=== PATIENT | male | born 1960 | race Caucasian/White ===

== ENCOUNTER 2019-08-09 16:52 | Inpatient (IN) | payer MEDICAID ==
[~2019-08-09] VITALS: Ht 170.2 cm; Wt 69.3 kg
[2019-08-09] MEDS ORDERED: MAG HYDROX/AL HYDROX/SIMETH 30 ML SUSP UDCUP PO ONE (17:15)
[2019-08-09] MEDS ORDERED: SODIUM CHLORIDE 0.9% 1,000 ML IV ONE (17:15)
[2019-08-09] MEDS ORDERED: FAMOTIDINE 10 MG/ML 2 ML VIAL IVP ONE (17:15)
[2019-08-09] MEDS ORDERED: ACETAMINOPHEN 500 MG TABLET PO ONE (17:15)
[2019-08-09] MEDS ORDERED: ONDANSETRON HCL 4 MG/2 ML VIAL IVP ONE (17:15)
[2019-08-09 17:29] LABS: BASOPHILS % (AUTO) 0.7 % (0.0-2.0); EOSINOPHILS % (AUTO) 0.6 % (1.0-6.0); HEMATOCRIT 38.3 % (41-53); HEMOGLOBIN 12.4 g/dL (13.5-17.5); LYMPHOCYTES # (AUTO) 1.2 K/uL (1.0-4.8); LYMPHOCYTES % (AUTO) 15.9 % (22.0-44.0); MEAN CORPUSCULAR HEMOGLOBIN 34.7 pg (26.0-34.0); MEAN CORPUSCULAR HGB CONC 32.2 G/dL (31.0-37.0); MEAN CORPUSCULAR VOLUME 108 fL (80-100); MONOCYTES # (AUTO) 0.8 K/uL (0.1-1.0); MONOCYTES % (AUTO) 11.1 % (2.0-9.0); NEUTROPHILS # (AUTO) 5.3 K/uL (1.8-7.7); NEUTROPHILS % (AUTO) 71.7 % (40.0-70.0); PLATELET COUNT (AUTO) 129 K/uL (150-450); RED BLOOD CELL COUNT(AUTO) 3.56 MIL/uL (4.50-5.90)
[2019-08-09 18:04] LABS: ALANINE AMINOTRANSFERASE 16 U/L (12-78); ALKALINE PHOSPHATASE 83 U/L (46-116); ANION GAP 9 mmol/L (8-16); ASPARTATE AMINOTRANSFERASE 49 U/L (15-37); BILIRUBIN,TOTAL 0.8 mg/dL (0.1-1.0); CALCIUM, TOTAL 7.8 mg/dL (8.8-10.5); CARBON DIOXIDE 34 mmol/L (22-29); CHLORIDE 89 mmol/L (98-107); CREATINE KINASE, TOTAL ONLY 474 U/L (39-308); CREATININE 0.71 mg/dL (0.60-1.30); GLOMERULAR FILTR. RATE CALC > 60 mL/min (>60); GLUCOSE,RANDOM 106 mg/dL (70-110); LIPASE 127 U/L (73-393); SODIUM SERUM 132 mmol/L (136-145); TOTAL PROTEIN, SERUM 6.6 g/dL (6.4-8.2); UREA NITROGEN, BLOOD 14 mg/dL (7-18)
[2019-08-09 18:09] LABS: POTASSIUM 2.5 mmol/L (3.5-5.1)
[2019-08-09 18:10] LABS: INR 0.9 (0.9-1.1); PROTHROMBIN TIME 9.5 SEC (9.4-11.6)
[2019-08-09] MEDS ORDERED: POTASSIUM CHLORIDE 20 MEQ ER TABLET PO ONE (18:15)
[2019-08-09] MEDS ORDERED: SODIUM CHLORIDE 0.9% 100 ML ONE (18:17)
[2019-08-09] MEDS ORDERED: IOVERSOL 350 MG/ML 100 ML VIAL ONE (18:17)
[2019-08-09 18:18] LABS: B-TYPE NATRIURETIC PEPTIDE 37 pg/mL (0-100)
[2019-08-09] MEDS: POTASSIUM CHL 10 MEQ/WATER 50 ML IV SCH ×2 (18:53→20:03)
[2019-08-09] MEDS ORDERED: ERTAPENEM SODIUM 1 GM in SODIUM CHLORIDE 0.9% 50 ML IV ONE (19:30)
[2019-08-09] MEDS ORDERED: PIPERACILLIN SODIUM/TAZOBACTAM 4.5 GM in DEXTROSE 5%-WATER 100 ML IV ONE (19:45)
[2019-08-09] MEDS ORDERED: 0.9% SODIUM CHLORIDE 10 ML SYRINGE IVP PRN (20:00)
[2019-08-09] MEDS ORDERED: ONDANSETRON HCL 4 MG/2 ML VIAL IVP PRN ×2 (20:00→22:15)
[2019-08-09] MEDS ORDERED: ACETAMINOPHEN 325 MG TABLET PO PRN ×2 (20:00→22:15)
[2019-08-09 20:25] LABS: INFLUENZA TYPE A NEGATIVE FOR TYPE A (NEGATIVE); INFLUENZA TYPE B NEGATIVE FOR TYPE B (NEGATIVE)
[2019-08-09 20:42] LABS: AMPHET/METH SCREEN,URINE NEGATIVE (NEGATIVE); BARBITURATE SCREEN, URINE NEGATIVE (NEGATIVE); BENZODIAZEPINES SCREEN,URINE NEGATIVE (NEGATIVE); CANNABINOID SCREEN,URINE NEGATIVE (NEGATIVE); COCAINE SCREEN,URINE NEGATIVE (NEGATIVE); METHADONE SCREEN, URINE NEGATIVE (NEGATIVE); OPIATE SCREEN,URINE NEGATIVE (NEGATIVE)
[2019-08-09 20:44] LABS: APPEARANCE,URINE CLEAR (CLEAR); BILIRUBIN,URINE NEGATIVE (NEGATIVE); GLUCOSE, URINE (UA) NEGATIVE (NEGATIVE); KETONES,URINE NEGATIVE (NEGATIVE); LEUKOCYTE ESTERASE ,URINE NEGATIVE (NEGATIVE); NITRATE,URINE NEGATIVE (NEGATIVE); OCCULT BLOOD,URINE NEGATIVE (NEGATIVE); PROTEIN,URINE POS 1+ (NEGATIVE)
[2019-08-09 20:46] LABS: PHENCYCLIDINE SCREEN,URINE NEGATIVE (NEGATIVE)
[2019-08-09 20:59] LABS: RBC,URINE None Seen /HPF (0-2)
[2019-08-09 21:00] LABS: BACTERIA,URINE None Seen /HPF (None Seen); SQUAMOUS EPITHELIAL CELL,UR Rare /LPF (None Seen); WBC,URINE None Seen /HPF (0-5)
[2019-08-09] MEDS ORDERED: ZOLPIDEM TARTRATE 5 MG TABLET PO PRN (22:15)
[2019-08-09] MEDS ORDERED: POTASSIUM CHLORIDE 20 MEQ ER TABLET PO PRN (22:15)
[2019-08-09] MEDS ORDERED: POTASSIUM CHL 10 MEQ/WATER 50 ML IV PRN (22:15)
[2019-08-09] MEDS ORDERED: BISACODYL 10 MG RECTAL RECTAL SUPPOSITORY PR PRN (22:15)
[2019-08-09] MEDS ORDERED: MAGNESIUM HYDROXIDE SUSPENSION 30 ML UDCUP PO PRN (22:15)
[2019-08-09] MEDS ORDERED: HYDROCODONE/ACETAMINOPHEN 5-325 MG TABLET PO PRN (22:15)
[2019-08-09 22:41] LABS: PHOSPHORUS 3.4 mg/dL (2.5-4.9)
[2019-08-09 22:56] VITALS: BP 109/78
[2019-08-10] MEDS: HEPARIN SODIUM,PORCINE 5,000 UNITS/ML VIAL SQ SCH ×3 (00:21→15:42)
[2019-08-10] MEDS: CIPROFLOXACIN 400 MG/D5% WATER 200 ML IV SCH ×3 (00:22→23:19)
[2019-08-10] MEDS: MetroNIDAZOLE 500 MG/NACL 100 ML IV SCH ×3 (01:43→15:42)
[2019-08-10 04:16] VITALS: BP 106/69
[2019-08-10 06:45] LABS: BASOPHILS % (AUTO) 0.6 % (0.0-2.0); EOSINOPHILS % (AUTO) 0.6 % (1.0-6.0); HEMATOCRIT 35.3 % (41-53); HEMOGLOBIN 11.6 g/dL (13.5-17.5); LYMPHOCYTES # (AUTO) 0.5 K/uL (1.0-4.8); LYMPHOCYTES % (AUTO) 6.5 % (22.0-44.0); MEAN CORPUSCULAR HEMOGLOBIN 35.8 pg (26.0-34.0); MEAN CORPUSCULAR HGB CONC 32.8 G/dL (31.0-37.0); MEAN CORPUSCULAR VOLUME 109 fL (80-100); MONOCYTES # (AUTO) 0.8 K/uL (0.1-1.0); MONOCYTES % (AUTO) 10.1 % (2.0-9.0); NEUTROPHILS # (AUTO) 6.6 K/uL (1.8-7.7); NEUTROPHILS % (AUTO) 82.2 % (40.0-70.0); PLATELET COUNT (AUTO) 129 K/uL (150-450); RED BLOOD CELL COUNT(AUTO) 3.24 MIL/uL (4.50-5.90)
[2019-08-10 06:56] LABS: ALANINE AMINOTRANSFERASE 15 U/L (12-78); ALBUMIN 2.6 g/dL (3.4-5.0); ALKALINE PHOSPHATASE 82 U/L (46-116); ANION GAP 5 mmol/L (8-16); ASPARTATE AMINOTRANSFERASE 47 U/L (15-37); BILIRUBIN,TOTAL 1.2 mg/dL (0.1-1.0); CALCIUM, TOTAL 7.3 mg/dL (8.8-10.5); CARBON DIOXIDE 36 mmol/L (22-29); CHLORIDE 95 mmol/L (98-107); GLOMERULAR FILTR. RATE CALC > 60 mL/min (>60); GLUCOSE,RANDOM 100 mg/dL (70-110); SODIUM SERUM 136 mmol/L (136-145); TOTAL PROTEIN, SERUM 5.9 g/dL (6.4-8.2); UREA NITROGEN, BLOOD 9 mg/dL (7-18)
[2019-08-10 07:01] LABS: POTASSIUM 2.7 mmol/L (3.5-5.1)
[2019-08-10 07:31] VITALS: BP 96/70
[2019-08-10] MEDS: DOCUSATE SODIUM 100 MG CAPSULE PO SCH ×2 (08:52→21:00)
[2019-08-10] MEDS: PANTOPRAZOLE SODIUM 40 MG DR TABLET PO SCH (08:52)
[2019-08-10] MEDS ORDERED: POTASSIUM CHLORIDE 20 MEQ ER TABLET PO ONE (10:15)
[2019-08-10] MEDS: SODIUM CHLORIDE 0.9% 2,050 ML IV SCH (10:34)
[2019-08-10 11:08] VITALS: BP 117/71
[2019-08-10 15:42] VITALS: BP 92/57
[2019-08-10 20:01] VITALS: BP 95/71
[2019-08-11 00:25] VITALS: BP 111/67
[2019-08-11] MEDS: SODIUM CHLORIDE 0.9% 2,050 ML IV SCH (02:43)
[2019-08-11] MEDS: MORPHINE SULFATE 2 MG/ML SYRINGE IVP PRN (04:45)
[2019-08-11 05:14] LABS: POTASSIUM 3.5 mmol/L (3.5-5.1)
[2019-08-11 05:34] LABS: MAGNESIUM 1.2 mg/dL (1.80-2.40); PHOSPHORUS 2.5 mg/dL (2.5-4.9)
[2019-08-11 05:41] VITALS: BP 116/74
[2019-08-11] MEDS: MetroNIDAZOLE 500 MG/NACL 100 ML IV SCH ×3 (07:47→16:14)
[2019-08-11] MEDS: PANTOPRAZOLE SODIUM 40 MG DR TABLET PO SCH (07:47)
[2019-08-11] MEDS: DOCUSATE SODIUM 100 MG CAPSULE PO SCH ×2 (07:47→20:28)
[2019-08-11] MEDS: HEPARIN SODIUM,PORCINE 5,000 UNITS/ML VIAL SQ SCH ×3 (07:47→15:44)
[2019-08-11 08:12] VITALS: BP 106/65
[2019-08-11 11:07] VITALS: BP 120/72
[2019-08-11] MEDS: CIPROFLOXACIN 400 MG/D5% WATER 200 ML IV SCH ×2 (11:16→22:48)
[2019-08-11] MEDS ORDERED: SODIUM CHLORIDE 0.9% 250 ML IV ONE (13:55)
[2019-08-11 15:09] VITALS: BP 124/76
[2019-08-11] MEDS ORDERED: POTASSIUM CHLORIDE 10% 40 MEQ/30 ML LIQUID UDCUP PO ONE (15:15)
[2019-08-11 19:31] VITALS: BP 107/67
[2019-08-11] MEDS ORDERED: MAGNESIUM SULFATE 2 GM/WATER 50 ML IV PRN (22:00)
[2019-08-11] MEDS ORDERED: MAGNESIUM OXIDE 400 MG TABLET PO PRN (22:00)
[2019-08-11] MEDS ORDERED: MAGNESIUM SULFATE 4 GM/WATER 100 ML IV PRN (22:00)
[2019-08-11 22:50] LABS: ALBUMIN 2.5 g/dL (3.4-5.0)
[2019-08-12] MEDS: HEPARIN SODIUM,PORCINE 5,000 UNITS/ML VIAL SQ SCH ×2 (00:29→08:04)
[2019-08-12] MEDS: MetroNIDAZOLE 500 MG/NACL 100 ML IV SCH ×2 (00:29→08:11)
[2019-08-12 00:52] VITALS: BP 116/71
[2019-08-12 04:53] VITALS: BP 119/68
[2019-08-12 07:32] VITALS: BP 108/63
[2019-08-12] MEDS: PANTOPRAZOLE SODIUM 40 MG DR TABLET PO SCH (08:04)
[2019-08-12] MEDS: DOCUSATE SODIUM 100 MG CAPSULE PO SCH (08:04)
[2019-08-12 08:15] LABS: ANION GAP 7 mmol/L (8-16); CALCIUM, TOTAL 8.1 mg/dL (8.8-10.5); CARBON DIOXIDE 30 mmol/L (22-29); CHLORIDE 101 mmol/L (98-107); CREATININE 0.72 mg/dL (0.60-1.30); GLOMERULAR FILTR. RATE CALC > 60 mL/min (>60); GLUCOSE,RANDOM 105 mg/dL (70-110); POTASSIUM 3.5 mmol/L (3.5-5.1); SODIUM SERUM 138 mmol/L (136-145); UREA NITROGEN, BLOOD 4 mg/dL (7-18)
[2019-08-12] MEDS: MORPHINE SULFATE 2 MG/ML SYRINGE IVP PRN (08:49)
[2019-08-12 11:26] VITALS: BP 131/69
[2019-08-12] MEDS: CIPROFLOXACIN 400 MG/D5% WATER 200 ML IV SCH (11:37)
[2019-08-12] MEDS ORDERED: METR500 PO (12:37)
[2019-08-12] MEDS ORDERED: CIPR-279 PO (12:37)
[2019-08-12 15:00] VITALS: BP 126/72
== END 2019-08-12 15:55 | disposition home or self-care (01) | DRG 247 ==
LOC: EMS 16:58 → 5N 20:20 → 6N 08-11 12:45
PROVIDERS: ADMIT Internal Medicine; ATTEND Internal Medicine
DX: K56.1 Intussusception (principal); D69.6 Thrombocytopenia, unspecified; E87.1 Hypo-osmolality and hyponatremia; N30.90 Cystitis, unspecified without hematuria; E86.0 Dehydration; D64.9 Anemia, unspecified; E87.6 Hypokalemia; K52.9 Noninfective gastroenteritis and colitis, unspecified; F10.10 Alcohol abuse, uncomplicated; Z99.3 Dependence on wheelchair; Z88.6 Allergy status to analgesic agent; Z03.818 Encounter for observation for suspected exposure to other biological agents ruled out
CPT/HCPCS: 74177; 83735; 84100; 84132; 86850; 86900; 86901; 87635; 87804; 93005; 99291; G0480; J0744; J1335; J1644; J2270; J2405; J2543; J3475; J3480; J3490; J7030; J7050; J7060